=== PATIENT | female | born 1990 | race Caucasian/White ===

== ENCOUNTER 2019-03-10 12:20 | Inpatient (IN) ==
[2019-03-10] MEDS ORDERED: MOM Conc 10 ML UD.LIQ PO PRN (12:30)
[2019-03-10] MEDS ORDERED: Acetaminophen 325 MG TABLET PO PRN (12:30)
[2019-03-10] MEDS ORDERED: Haloperidol Lactate 5 MG/ML VIAL IM PRN (12:30)
[2019-03-10] MEDS ORDERED: hydrOXYzine pamoate 25 MG CAPSULE PO PRN (12:30)
[2019-03-10] MEDS ORDERED: traZODone 50 MG TABLET PO PRN (12:30)
[2019-03-10] MEDS ORDERED: *HR* LORazepam 2 MG/ML VIAL IM PRN (12:30)
[2019-03-10] MEDS ORDERED: *HR* LORazepam 1 MG TABLET PO PRN (12:30)
[2019-03-10] MEDS ORDERED: Mag Hydrox/Al Hydrox/Simeth 30 ML UDC PO PRN (12:30)
[2019-03-11] MEDS: (Vortioxetine Hydrobromide [Trintellix] 5 MG) PO SCH (09:39)
[2019-03-11] MEDS: Propranolol LA (24 HR) 60 MG CAP.SA.24H PO SCH (09:39)
[2019-03-11] MEDS: Loratadine 10 MG TABLET PO SCH (09:39)
[2019-03-12] MEDS: Propranolol LA (24 HR) 60 MG CAP.SA.24H PO SCH (08:49)
[2019-03-12] MEDS: Loratadine 10 MG TABLET PO SCH (08:49)
[2019-03-12] MEDS: (Vortioxetine Hydrobromide [Trintellix] 5 MG) PO SCH (08:50)
[2019-03-12 09:53] VITALS: BP 109/76
[2019-03-12] MEDS ORDERED: FLU Vac QV 19-20 (6Month+)/PF 0.5 ML SYRINGE IM ONE (13:09)
== END 2019-03-12 15:20 | disposition home or self-care (01) | DRG 751 ==
LOC: 1ANU 12:20 → SUATTDRO 12:20
PROVIDERS: ADMIT Psychiatry & Neurology Psychiatry; ATTEND Psychiatry & Neurology Psychiatry

== ENCOUNTER 2019-11-27 19:27 | Inpatient (IN) ==
[2019-11-27 20:12] LABS: Bilirubin,Urine Negative (Negative); Blood,Urine Negative (Negative); Clarity,Urine Clear (Clear); Color,Urine Light-Yellow (Yellow); Glucose,Urine (UA) Normal (Normal); Ketones,Urine Negative (Negative); Leukocyte Esterase,Urine Negative (Negative); Nitrite,Urine Negative (Negative); Protein,Urine Negative (Neg-Trace); Specific Gravity,Urine 1.012 (1.010-1.025); Urobilinogen,Urine Normal (Normal)
[2019-11-27 20:24] LABS: Amphetamine Screen,Urine Negative ng/mL (Cutoff=1000); Barbiturate Screen,Urine Negative ng/mL (Cutoff=200); Benzodiazepines Screen,Urine Negative ng/mL (Cutoff=200); Cannabinoid Screen,Urine Negative ng/mL (Cutoff = 50); Cocaine Screen,Urine Negative ng/mL (Cutoff= 300); Opiate Screen,Urine Negative ng/mL (Cutoff=300); Phencyclidine Screen,Urine Negative ng/mL (Cutoff=25)
[2019-11-27 20:51] LABS: Basophils % 0.3 %; Eosinophils # 0.1 K/mcL (0.0-0.6); Eosinophils % 1.1 %; Hematocrit 39.8 % (35.3-44.9); Hemoglobin 12.8 g/dL (11.5-15.4); Immature Granulocytes % 0.4 % (0-4); Lymphocytes # 2.5 K/mcL (0.6-4.6); Lymphocytes % 24.7 %; Mean Corpuscular HGB Conc 32.2 g/dL (31.6-35.5); Mean Corpuscular Hemoglobin 25.3 pg (28.0-33.3); Mean Corpuscular Volume 78.8 fL (83.0-100.0); Mean Platelet Volume 10.5 fL (9.4-12.4); Monocytes # 0.8 K/mcL (0.0-1.3); Monocytes % 7.4 %; Neutrophils # 6.8 K/mcL (1.6-8.9); Platelet Count 416 K/mcL (140-400); Red Blood Count 5.05 M/mcL (3.82-4.97); Red Cell Distribution Width 14.2 % (11.5-14.5); Segmented Neutrophils % 66.1 %; White Blood Count 10.2 K/mcL (4.3-11.1)
[2019-11-27 20:55] LABS: Estimated Average Glucose 126 mg/dl
[2019-11-27 21:16] LABS: Acetaminophen < 10 mcg/mL (10-20); BUN/Creatinine Ratio 11 (6-26); Blood Urea Nitrogen 9 mg/dL (6-20); Calcium 8.8 mg/dL (8.6-10.3); Carbon Dioxide 20 mEq/L (23-29); Chloride 108 mEq/L (98-107); Chol/HDL Ratio 6.6 (0-4.9); Cholesterol 239 mg/dL (< 200); Ethanol < 10 mg/dL (Less than 10); Glucose 110 mg/dL (70-105); HDL Cholesterol 36 mg/dL (40-59); LDL Cholesterol,Calculated 175 mg/dL (< 100); Osmolality,Calculated 283 (280-300); Potassium 3.6 mEq/L (3.5-5.1); Salicylate < 2.5 mg/dL (15.0-30.0); Sodium 137 mEq/L (136-145); Triglycerides 142 mg/dL (< 150); eGFR For African Americans > 60 (> 60); eGFR For Non-African Americans > 60 (> 60)
[2019-11-27 21:27] LABS: Thyroid Stimulating Hormone 1.869 mcIU/mL (0.340-5.600)
[2019-11-27] MEDS ORDERED: Ibuprofen 400 MG TABLET PO PRN (22:44)
[2019-11-27] MEDS ORDERED: *HR* LORazepam 2 MG/ML VIAL IM PRN (22:44)
[2019-11-27] MEDS ORDERED: hydrOXYzine pamoate 25 MG CAPSULE PO PRN (22:44)
[2019-11-27] MEDS ORDERED: *HR* LORazepam 1 MG TABLET PO PRN (22:44)
[2019-11-27] MEDS ORDERED: haloperidoL 5 MG TABLET PO PRN (22:44)
[2019-11-27] MEDS ORDERED: Haloperidol Lactate 5 MG/ML VIAL IM PRN (22:44)
[2019-11-27] MEDS ORDERED: Acetaminophen 325 MG TABLET PO PRN (22:44)
[2019-11-28] MEDS: Propranolol LA (24 HR) 60 MG CAP.SA.24H PO SCH (09:07)
[2019-11-28] MEDS: Loratadine 10 MG TABLET PO SCH (13:07)
[2019-11-28] MEDS: FLUTICASONE PROPIONATE NS SCH (14:15)
[2019-11-28] MEDS: ETHINYL ESTRADIOL PO SCH (14:15)
[2019-11-28] MEDS: NORETHINDRONE PO SCH (14:15)
[2019-11-28] MEDS: FERROUS FUMARATE PO SCH (14:15)
[2019-11-28] MEDS: (Vortioxetine Hydrobromide [Trintellix] 20 MG) PO SCH (14:16)
[2019-11-28] MEDS ORDERED: Mag Hydrox/Al Hydrox/Simeth 30 ML UDC PO PRN (16:39)
[2019-11-29] MEDS: Loratadine 10 MG TABLET PO SCH (08:37)
[2019-11-29] MEDS: Propranolol LA (24 HR) 60 MG CAP.SA.24H PO SCH (08:37)
[2019-11-29] MEDS: NORETHINDRONE PO SCH (08:38)
[2019-11-29] MEDS: ETHINYL ESTRADIOL PO SCH (08:38)
[2019-11-29] MEDS: FERROUS FUMARATE PO SCH (08:38)
[2019-11-29] MEDS: (Vortioxetine Hydrobromide [Trintellix] 20 MG) PO SCH (08:38)
[2019-11-29] MEDS: FLUTICASONE PROPIONATE NS SCH (08:39)
[2019-11-30] MEDS: Loratadine 10 MG TABLET PO SCH (08:42)
[2019-11-30] MEDS: Propranolol LA (24 HR) 60 MG CAP.SA.24H PO SCH (08:42)
[2019-11-30] MEDS: FLUTICASONE PROPIONATE NS SCH (08:43)
[2019-11-30] MEDS: (Vortioxetine Hydrobromide [Trintellix] 20 MG) PO SCH (08:44)
[2019-11-30] MEDS: ETHINYL ESTRADIOL PO SCH (08:44)
[2019-11-30] MEDS: FERROUS FUMARATE PO SCH (08:44)
[2019-11-30] MEDS: NORETHINDRONE PO SCH (08:44)
[2019-12-01] MEDS: Propranolol LA (24 HR) 60 MG CAP.SA.24H PO SCH (08:52)
[2019-12-01] MEDS: (Vortioxetine Hydrobromide [Trintellix] 20 MG) PO SCH (08:52)
[2019-12-01] MEDS: Loratadine 10 MG TABLET PO SCH (08:52)
[2019-12-01] MEDS: NORETHINDRONE PO SCH (08:53)
[2019-12-01] MEDS: ETHINYL ESTRADIOL PO SCH (08:53)
[2019-12-01] MEDS: FERROUS FUMARATE PO SCH (08:53)
[2019-12-01] MEDS: FLUTICASONE PROPIONATE NS SCH (08:54)
[2019-12-01] MEDS ORDERED: traZODone 50 MG TABLET PO PRN (21:03)
[2019-12-02] MEDS: (Vortioxetine Hydrobromide [Trintellix] 20 MG) PO SCH (07:53)
[2019-12-02] MEDS: FLUTICASONE PROPIONATE NS SCH (07:53)
[2019-12-02] MEDS: ETHINYL ESTRADIOL PO SCH (07:53)
[2019-12-02] MEDS: NORETHINDRONE PO SCH (07:53)
[2019-12-02] MEDS: FERROUS FUMARATE PO SCH (07:53)
[2019-12-02] MEDS: Loratadine 10 MG TABLET PO SCH (07:54)
[2019-12-02] MEDS: Propranolol LA (24 HR) 60 MG CAP.SA.24H PO SCH (07:54)
[2019-12-02] MEDS: ARIPiprazole 2 MG TABLET PO SCH (16:06)
[2019-12-03] MEDS: ETHINYL ESTRADIOL PO SCH (09:04)
[2019-12-03] MEDS: NORETHINDRONE PO SCH (09:04)
[2019-12-03] MEDS: FERROUS FUMARATE PO SCH (09:04)
[2019-12-03] MEDS: FLUTICASONE PROPIONATE NS SCH (09:05)
[2019-12-03] MEDS: (Vortioxetine Hydrobromide [Trintellix] 20 MG) PO SCH (09:05)
[2019-12-03] MEDS: ARIPiprazole 2 MG TABLET PO SCH (09:06)
[2019-12-03] MEDS: Loratadine 10 MG TABLET PO SCH (09:06)
[2019-12-03] MEDS: Propranolol LA (24 HR) 60 MG CAP.SA.24H PO SCH (09:06)
[2019-12-04] MEDS: (Vortioxetine Hydrobromide [Trintellix] 20 MG) PO SCH (08:45)
[2019-12-04] MEDS: FLUTICASONE PROPIONATE NS SCH (08:45)
[2019-12-04] MEDS: FERROUS FUMARATE PO SCH (08:45)
[2019-12-04] MEDS: NORETHINDRONE PO SCH (08:45)
[2019-12-04] MEDS: Loratadine 10 MG TABLET PO SCH (08:45)
[2019-12-04] MEDS: ETHINYL ESTRADIOL PO SCH (08:45)
[2019-12-04] MEDS: ARIPiprazole 2 MG TABLET PO SCH (08:45)
[2019-12-04] MEDS: Propranolol LA (24 HR) 60 MG CAP.SA.24H PO SCH (08:45)
[2019-12-04] MEDS ORDERED: traZODone 50 MG TABLET PO PRN (11:14)
[2019-12-05] MEDS: FERROUS FUMARATE PO SCH (08:01)
[2019-12-05] MEDS: ETHINYL ESTRADIOL PO SCH (08:01)
[2019-12-05] MEDS: NORETHINDRONE PO SCH (08:01)
[2019-12-05] MEDS: ARIPiprazole 5 MG TABLET PO SCH (09:26)
[2019-12-05] MEDS: FLUTICASONE PROPIONATE NS SCH (09:27)
[2019-12-05] MEDS: Loratadine 10 MG TABLET PO SCH (09:27)
[2019-12-05] MEDS: Propranolol LA (24 HR) 60 MG CAP.SA.24H PO SCH (09:27)
[2019-12-05] MEDS: (Vortioxetine Hydrobromide [Trintellix] 20 MG) PO SCH (09:28)
[2019-12-06] MEDS: FLUTICASONE PROPIONATE NS SCH (08:21)
[2019-12-06] MEDS: ARIPiprazole 5 MG TABLET PO SCH (08:21)
[2019-12-06] MEDS: Loratadine 10 MG TABLET PO SCH (08:21)
[2019-12-06] MEDS: Propranolol LA (24 HR) 60 MG CAP.SA.24H PO SCH (08:21)
[2019-12-06] MEDS: FERROUS FUMARATE PO SCH (08:22)
[2019-12-06] MEDS: ETHINYL ESTRADIOL PO SCH (08:22)
[2019-12-06] MEDS: NORETHINDRONE PO SCH (08:22)
[2019-12-06] MEDS: (Vortioxetine Hydrobromide [Trintellix] 20 MG) PO SCH (08:22)
[2019-12-07] MEDS: Propranolol LA (24 HR) 60 MG CAP.SA.24H PO SCH (08:58)
[2019-12-07] MEDS: ARIPiprazole 5 MG TABLET PO SCH (08:58)
[2019-12-07] MEDS: Loratadine 10 MG TABLET PO SCH (08:59)
[2019-12-07] MEDS: FLUTICASONE PROPIONATE NS SCH (09:01)
[2019-12-07] MEDS: (Vortioxetine Hydrobromide [Trintellix] 20 MG) PO SCH (09:01)
[2019-12-07] MEDS: FERROUS FUMARATE PO SCH ×2 (09:39→10:36)
[2019-12-07] MEDS: NORETHINDRONE PO SCH ×2 (09:39→10:36)
[2019-12-07] MEDS: ETHINYL ESTRADIOL PO SCH ×2 (09:39→10:36)
[2019-12-08] MEDS: ARIPiprazole 5 MG TABLET PO SCH (08:33)
[2019-12-08] MEDS: Propranolol LA (24 HR) 60 MG CAP.SA.24H PO SCH (08:33)
[2019-12-08] MEDS: ETHINYL ESTRADIOL PO SCH (08:34)
[2019-12-08] MEDS: (Vortioxetine Hydrobromide [Trintellix] 20 MG) PO SCH (08:34)
[2019-12-08] MEDS: NORETHINDRONE PO SCH (08:34)
[2019-12-08] MEDS: FERROUS FUMARATE PO SCH (08:34)
[2019-12-08] MEDS: Loratadine 10 MG TABLET PO SCH (08:34)
[2019-12-08] MEDS: FLUTICASONE PROPIONATE NS SCH (08:35)
[2019-12-08 08:45] VITALS: BP 118/80
== END 2019-12-08 15:00 | disposition home or self-care (01) | DRG 751 ==
LOC: EMEROOARM 19:27 → SUATTDRO 22:42 → 1ANU 22:42
PROVIDERS: ADMIT Psychiatry & Neurology Psychiatry; ATTEND Psychiatry & Neurology Psychiatry